=== PATIENT | male | born 1985 | race American Indian/Alaskan Native ===

== ENCOUNTER 2017-04-13 10:45 | Emergency (ER) | payer SELFPAY ==
[2017-04-13 11:13] VITALS: BP 108/68
--- NOTE | 2017-04-13 11:28 | Emergency Department Report ---
ED ENT HPI - General Chief complaint: Sore Throat Stated complaint: SORE THROAT Time Seen by Provider: 04/13/17 11:21 Source: patient Mode of arrival: Ambulatory Limitations: No Limitations - History of Present Illness Initial comments: 31-year-old male past medical history none presents with complaint of 5 days of cough and sore throat. Denies fevers chills. States he has multiple family members with similar symptoms at home. Denies any recent travel. Denies nausea or vomiting. Primarily complaining of slightly sore throat. Speaking in full sentences no trismus and no stridor no drooling. Patient is able to swallow solids and liquids without difficulty. Patient reports nonproductive cough for 2 days. Denies sinus congestion or earache. MD complaint: sore throat Onset/Timin -: days(s) Location: throat Severity: moderate Severity scale (0 -10): 4 Quality: aching Consistency: intermittent Improves with: none Worsens with: none Associated Symptoms: sore throat - Related Data Previous Rx's Medication Instructions Recorded Last Taken Type Dextromethorphan/Benzocaine 1 each PO Q4H PRN #1 box 04/13/17 Unknown Rx [Cepacol Sorethroat-Cough Carol] Ibuprofen [Motrin] 800 mg PO Q8HR PRN #20 tablet 04/13/17 Unknown Rx Phenylephrine/Dm/Acetaminop/GG 10 ml PO Q4H PRN #1 bottle 04/13/17 Unknown Rx [Mucinex Xbef-Meq-Udbgnxionv Lq] Allergies Allergy/AdvReac Type Severity Reaction Status Date / Time No Known Allergies Allergy Unverified 04/13/17 11:10 ED Dental HPI - General Chief complaint: Sore Throat Stated complaint: SORE THROAT Time Seen by Provider: 04/13/17 11:21 Source: patient Mode of arrival: Ambulatory Limitations: No Limitations - Related Data Previous Rx's Medication Instructions Recorded Last Taken Type Dextromethorphan/Benzocaine 1 each PO Q4H PRN #1 box 04/13/17 Unknown Rx [Cepacol Sorethroat-Cough Carol] Ibuprofen [Motrin] 800 mg PO Q8HR PRN #20 tablet 04/13/17 Unknown Rx Phenylephrine/Dm/Acetaminop/GG 10 ml PO Q4H PRN #1 bottle 04/13/17 Unknown Rx [Mucinex Oxyr-Szf-Wzgapvufxf Lq] Allergies Allergy/AdvReac Type Severity Reaction Status Date / Time No Known Allergies Allergy Unverified 04/13/17 11:10 ED Review of Systems ROS: Stated complaint: SORE THROAT Other details as noted in HPI Constitutional: denies: chills, fever Eyes: denies: eye pain, eye discharge, vision change ENT: throat pain. denies: ear pain Respiratory: cough. denies: shortness of breath, wheezing Cardiovascular: denies: chest pain, palpitations Endocrine: no symptoms reported Gastrointestinal: denies: abdominal pain, nausea, diarrhea Genitourinary: denies: urgency, dysuria Musculoskeletal: denies: back pain, joint swelling, arthralgia Skin: denies: rash, lesions Neurological: denies: headache, weakness, paresthesias Psychiatric: denies: anxiety, depression Hematological/Lymphatic: denies: easy bleeding, easy bruising ED Past Medical Hx - Past Medical History Previous Medical History?: No - Surgical History Past Surgical History?: No - Social History Smoking Status: Current Every Day Smoker Substance Use Type: Alcohol, Marijuana - Medications Home Medications: Home Medications Medication Instructions Recorded Confirmed Last Taken Type Dextromethorphan/Benzocaine 1 each PO Q4H PRN #1 box 04/13/17 Unknown Rx [Cepacol Sorethroat-Cough Carol] Ibuprofen [Motrin] 800 mg PO Q8HR PRN #20 tablet 04/13/17 Unknown Rx Phenylephrine/Dm/Acetaminop/GG 10 ml PO Q4H PRN #1 bottle 04/13/17 Unknown Rx [Mucinex Fafi-Afr-Farlkttckj Lq] ED Physical Exam - General Limitations: No Limitations General appearance: alert, in no apparent distress - Head Head exam: Present: atraumatic, normocephalic - Eye Eye exam: Present: normal appearance, PERRL, EOMI - ENT ENT exam: Present: mucous membranes moist - Expanded ENT Exam Expanded Mouth exam: Present: normal external inspection Teeth exam: Present: normal inspection Throat exam: Positive: other (some pharyngeal erythema no visible exudates.) - Neck Neck exam: Present: normal inspection, full ROM - Respiratory Respiratory exam: Present: normal lung sounds bilaterally. Absent: respiratory distress - Cardiovascular Cardiovascular Exam: Present: regular rate, normal rhythm. Absent: systolic murmur, diastolic murmur, rubs, gallop - GI/Abdominal GI/Abdominal exam: Present: soft, normal bowel sounds - Rectal Rectal exam: Present: deferred - Extremities Exam Extremities exam: Present: normal inspection - Back Exam Back exam: Present: normal inspection - Neurological Exam Neurological exam: Present: alert, oriented X3 - Psychiatric Psychiatric exam: Present: normal affect, normal mood - Skin Skin exam: Present: warm, dry, intact, normal color. Absent: rash ED Course Vital Signs 04/13/17 11:10 Temperature 98.1 F Pulse Rate 78 Respiratory 16 Rate Blood Pressure 108/68 O2 Sat by Pulse 99 Oximetry ED Medical Decision Making - Medical Decision Making A/P: Pharyngitis, URI, viral syndrome 1-Motrin when necessary, throat lozenges when necessary, advised patient to stay well-hydrated, Mucinex when necessary 2-follow-up with primary care doctor Critical care attestation.: If time is entered above; I have spent that time in minutes in the direct care of this critically ill patient, excluding procedure time. ED Disposition Clinical Impression: Pharyngitis Qualifiers: Pharyngitis/tonsillitis etiology: unspecified etiology Qualified Code(s): J02.9 - Acute pharyngitis, unspecified Disposition: - TO HOME OR SELFCARE Is pt being admited?: No Does the pt Need Aspirin: No Condition: Stable Instructions: Upper Respiratory Infection (ED), Cold Symptoms (ED), Pharyngitis (ED) Prescriptions: Dextromethorphan/Benzocaine [Cepacol Sorethroat-Cough Carol] 1 each PO Q4H PRN #1 box PRN Reason: Sore Throat Ibuprofen [Motrin] 800 mg PO Q8HR PRN #20 tablet PRN Reason: Sore Throat Phenylephrine/Dm/Acetaminop/GG [Mucinex Sspb-Xjg-Aillvukhzz Lq] 10 ml PO Q4H PRN #1 bottle PRN Reason: Sore Throat Referrals: [facility] [Outside] - 3-5 Days [facility] [Outside] - 3-5 Days Forms: Accompanied Note Time of Disposition: 12:30
== END 2017-04-13 12:34 | disposition home or self-care (01) ==
LOC: ED 10:45
DX: J02.9 Acute pharyngitis, unspecified (principal); R05 Cough; F12.10 Cannabis abuse, uncomplicated; F17.200 Nicotine dependence, unspecified, uncomplicated
CPT/HCPCS: 87116; 87430; 99282